=== PATIENT | male | born 1955 | race Hispanic/Latino ===

== ENCOUNTER 2016-07-21 14:24 | Outpatient (CLI) | payer MEDICARE ==
[2016-07-21 15:10] LABS: Hemoglobin A1c 8.3 % (4.0-6.0)
[2016-07-21 15:41] LABS: ALT (SGPT) 11 U/L (0-55); AST (SGOT) 8 U/L (5-34); Albumin 4.1 g/dL (3.4-4.8); Alkaline Phosphatase 83 U/L (40-150); Anion Gap 14 mmol/L (10-20); BUN (Urea Nitrogen) 20 mg/dL (8.4-25.7); Bilirubin, Total 0.5 mg/dL (0.2-1.2); Calc. Creatinine Clearance 0 mL/min (70-130); Carbon Dioxide 23 mmol/L (23-31); Chloride 101 mmol/L (98-107); Estimated GFR-MDRD 54; Globulin 2.7 g/dL (2.4-3.5); Glucose 295 mg/dL (80-115); Protein, Total 6.8 g/dL (5.8-8.1); Sodium 134 mmol/L (136-145)
== END 2016-07-21 14:25 | disposition home or self-care (01) ==
LOC: MADLABBHPM 14:24
PROVIDERS: ATTEND Family Medicine
DX: E11.65 Type 2 diabetes mellitus with hyperglycemia (principal)
CPT/HCPCS: 36415; 80053; 83036

== ENCOUNTER 2016-07-25 11:14 | Outpatient (CLI) | payer MEDICARE ==
[2016-07-25 17:50] LABS: Microalbumin-Urine 3.4 mg/dL; Microalbumin/24 Hr 9.52 mg/24 hr (Less than 30)
== END 2016-07-25 11:15 | disposition home or self-care (01) ==
LOC: MADLABBHPM 11:14
PROVIDERS: ATTEND Family Medicine
DX: R80.9 Proteinuria, unspecified (principal)
CPT/HCPCS: 36415; 82043

== ENCOUNTER 2016-10-22 09:53 | Outpatient (CLI) | payer MEDICARE ==
[2016-10-22 11:04] LABS: ALT (SGPT) 15 U/L (8-55); AST (SGOT) 11 U/L (5-34); Albumin 3.9 g/dL (3.4-4.8); Alkaline Phosphatase 67 U/L (40-150); Anion Gap 12 mmol/L (10-20); BUN (Urea Nitrogen) 19 mg/dL (8.4-25.7); Bilirubin, Total 0.3 mg/dL (0.2-1.2); Calc. Creatinine Clearance 0 mL/min (70-130); Calcium 9.1 mg/dL (7.8-10.44); Carbon Dioxide 23 mmol/L (23-31); Cardiac Risk 4.6 (Less than 4.5); Chloride 106 mmol/L (98-107); Cholesterol 139 mg/dl (< 200 Desired); Estimated GFR-MDRD 54; Globulin 2.9 g/dL (2.4-3.5); Glucose 193 mg/dL (80-115); HDL Cholesterol 30 mg/dL (>60 Neg Risk); LDL Cholesterol, Calculated 70 mg/dL; Potassium 3.8 mmol/L (3.5-5.1); Protein, Total 6.8 g/dL (5.8-8.1); Sodium 137 mmol/L (136-145); Triglycerides 197 mg/dL (Less than 150)
[2016-10-22 11:07] LABS: Hemoglobin A1c 7.3 % (4.0-6.0)
== END 2016-10-22 09:54 ==
LOC: MADLABBHPM 09:53
PROVIDERS: ATTEND Family Medicine
DX: E11.65 Type 2 diabetes mellitus with hyperglycemia (principal)
CPT/HCPCS: 80053; 80061; 83036; 84443

== ENCOUNTER 2017-01-01 18:19 | Emergency (ER) | payer MEDICARE ==
[~2017-01-01 18:19] MED LIST: Sodium Chloride 0.9% 1,000 ML BAG ONE
[2017-01-01 19:05] LABS: #Basophils 0.1 thou/uL (0.0-0.2); #Eosinphils 0.1 thou/uL (0.0-0.7); #Lymphocytes 2.7 thou/uL (1.20-3.40); #Monocytes 0.5 thou/uL (0.11-0.59); #Neutrophils 11.3 thou/uL (1.40-6.50); %Basophils 0.4 % (0.0-1.0); %Eosinophils 0.7 % (0.0-10.0); %Lymphocytes 18.4 % (21.0-51.0); %Monocytes 3.6 % (0.0-10.0); Hemoglobin 15.1 g/dL (14.0-18.0); Mean Corpuscular HGB CONC 32.9 g/dL (32.0-36.0); Mean Corpuscular Hemoglobin 28.1 pg (27.0-31.0); Mean Corpuscular Volume 85.5 fl (80.0-94.0); Mean Platelet Volume 9.8 fL (7.4-10.4); Platelet Count 205 thou/uL (130-400); RBC Distribution Width 13.6 % (11.5-14.5); Red Blood Cell (RBC) Count 5.37 mill/uL (4.70-6.10); White Blood Cell (WBC) Count 14.7 thou/uL (4.8-10.8)
[2017-01-01 19:10] LABS: Prothrombin Time 13.4 SEC (12.0-14.7)
[2017-01-01 19:21] LABS: ALT (SGPT) 12 U/L (8-55); AST (SGOT) 13 U/L (5-34); Albumin 4.1 g/dL (3.4-4.8); Alkaline Phosphatase 64 U/L (40-150); Anion Gap 16 mmol/L (10-20); BUN (Urea Nitrogen) 15 mg/dL (8.4-25.7); Bilirubin, Total 0.4 mg/dL (0.2-1.2); Calc. Creatinine Clearance 0 mL/min (70-130); Calcium 9.5 mg/dL (7.8-10.44); Carbon Dioxide 23 mmol/L (23-31); Chloride 104 mmol/L (98-107); Estimated GFR-MDRD 62; Globulin 3.1 g/dL (2.4-3.5); Glucose 135 mg/dL (80-115); Lipase 30 U/L (8-78); Potassium 3.8 mmol/L (3.5-5.1); Protein, Total 7.2 g/dL (5.8-8.1); Sodium 139 mmol/L (136-145)
[2017-01-01] MEDS ORDERED: Meclizine HCl 25 MG TAB ONE (19:22)
[2017-01-01] MEDS ORDERED: Ondansetron HCl/PF 4 MG/2 ML Vial ONE (19:24)
[2017-01-01] MEDS ORDERED: Ketorolac Tromethamine 30 MG/ML VIAL ONE (19:24)
--- NOTE | 2017-01-01 22:51 | CT ---
NONCONTRAST CT OF THE BRAIN 01/01/17 INDICATION: Headache. COMPARISON: Prior exam dated 12/14/11. IMPRESSION: No acute intracranial abnormality. COMMENTS: There is mild generalized cerebral atrophy. Septum pellucidum and third ventricle are midline. No ac grand traverse infarct, hemorrhage or hydrocephalus present. There are vascular calcifications involving the in tracranial arteries. Mastoid air cells and paranasal sinuses are clear. Skull is intact. POS: [facility]
--- NOTE | 2017-01-01 22:56 | CT ---
NONCONTRAST CT OF THE CERVICAL SPINE INDICATIONS: Radiculopathy. COMPARISON: None. FINDINGS: No acute fracture or subluxation is evident. There is mild right osseous neural foraminal narrowing at C3-C4, due to uncovertebral hypertrophy an d facet joint degenerative change. No additional definite level of osseous neural foraminal narrowing is noted. There is mild multilev el disk degenerative changes. There is diffuse osteopenia. The lung apices are clear. The craniocervical junction appears within normal limits. IMPRESSION: 1. No acute osseous abnormality. 2. Mild spondylosis of the cervical spine. POS: [facility]
--- NOTE | 2017-01-01 22:59 | RAD ---
AP VIEW OF THE CHEST 01/01/17 INDICATION: Dizziness and abdominal pain. IMPRESSION: No acute cardiopulmonary abnormality. COMMENTS: The exam is not appreciably changed from a comparison dated 08/31/14. POS: [facility]
== END 2017-01-01 21:35 | disposition home or self-care (01) ==
LOC: MADERS 18:19
DX: H83.09 Labyrinthitis, unspecified ear (principal); E11.9 Type 2 diabetes mellitus without complications; I10 Essential (primary) hypertension; E03.9 Hypothyroidism, unspecified; F17.210 Nicotine dependence, cigarettes, uncomplicated; Z79.4 Long term (current) use of insulin; Z79.82 Long term (current) use of aspirin; Z79.899 Other long term (current) drug therapy; Z79.891 Long term (current) use of opiate analgesic
CPT/HCPCS: 36416; 70450; 71010; 72125; 80053; 82150; 83690; 83880; 85025; 85610; 85730; 93005; 96361; 96374; 96375; J1885; J2405; J7050

== ENCOUNTER 2017-01-21 08:29 | Outpatient (CLI) | payer MEDICARE ==
[2017-01-21 10:02] LABS: ALT (SGPT) 12 U/L (8-55); AST (SGOT) 11 U/L (5-34); Albumin 4.1 g/dL (3.4-4.8); Alkaline Phosphatase 65 U/L (40-150); Anion Gap 14 mmol/L (10-20); BUN (Urea Nitrogen) 30 mg/dL (8.4-25.7); Bilirubin, Total 0.4 mg/dL (0.2-1.2); Calc. Creatinine Clearance 0 mL/min (70-130); Calcium 9.3 mg/dL (7.8-10.44); Carbon Dioxide 22 mmol/L (23-31); Chloride 104 mmol/L (98-107); Estimated GFR-MDRD 47; Globulin 3.1 g/dL (2.4-3.5); Glucose 152 mg/dL (80-115); Protein, Total 7.2 g/dL (5.8-8.1); Sodium 136 mmol/L (136-145)
== END 2017-01-21 08:30 | disposition home or self-care (01) ==
LOC: MADLABBHPM 08:29
PROVIDERS: ATTEND Family Medicine
DX: E11.65 Type 2 diabetes mellitus with hyperglycemia (principal)
CPT/HCPCS: 36415; 80053; 83036

== ENCOUNTER 2017-11-23 07:50 | Outpatient (CLI) | payer MEDICARE ==
[2017-11-23 09:00] LABS: ALT (SGPT) 16 U/L (8-55); AST (SGOT) 17 U/L (5-34); Alkaline Phosphatase 52 U/L (40-150); Anion Gap 15 mmol/L (10-20); BUN (Urea Nitrogen) 23 mg/dL (8.4-25.7); Bilirubin, Total 0.5 mg/dL (0.2-1.2); Calc. Creatinine Clearance 0 mL/min (70-130); Calcium 8.9 mg/dL (7.8-10.44); Carbon Dioxide 23 mmol/L (23-31); Chloride 107 mmol/L (98-107); Cholesterol 132 mg/dl (< 200 Desired); Estimated GFR-MDRD 54; Globulin 2.6 g/dL (2.4-3.5); Glucose 150 mg/dL (80-115); HDL Cholesterol 33 mg/dL (>60 Neg Risk); LDL Cholesterol, Calculated 73 mg/dL; Potassium 3.7 mmol/L (3.5-5.1); Protein, Total 6.6 g/dL (5.8-8.1); Sodium 141 mmol/L (136-145); Triglycerides 132 mg/dL (Less than 150)
== END 2017-11-23 07:51 | disposition home or self-care (01) ==
LOC: MADLABBHPM 07:50
PROVIDERS: ATTEND Family Medicine
DX: E78.2 Mixed hyperlipidemia (principal)
CPT/HCPCS: 36415; 80053; 80061

== ENCOUNTER 2018-02-26 11:10 | Outpatient (CLI) | payer MEDICARE ==
[2018-02-28 18:07] LABS: Anion Gap 14 mmol/L (10-20); BUN (Urea Nitrogen) 24 mg/dL (8.4-25.7); Calc. Creatinine Clearance 0 mL/min (70-130); Carbon Dioxide 23 mmol/L (23-31); Chloride 106 mmol/L (98-107); Estimated GFR-MDRD 59; Glucose 277 mg/dL (80-115); Potassium 3.7 mmol/L (3.5-5.1); Sodium 139 mmol/L (136-145)
[2018-02-28 18:08] LABS: ALT (SGPT) 21 U/L (8-55); AST (SGOT) 30 U/L (5-34); Albumin 3.9 g/dL (3.4-4.8); Alkaline Phosphatase 97 U/L (40-150); Bilirubin, Total 0.5 mg/dL (0.2-1.2); Calcium 9.1 mg/dL (7.8-10.44); Globulin 2.9 g/dL (2.4-3.5); Protein, Total 6.8 g/dL (5.8-8.1)
[2018-02-28 18:31] LABS: Hemoglobin A1c 8.2 % (4.0-6.0)
== END 2018-02-26 11:11 | disposition home or self-care (01) ==
LOC: MADLAB 11:10
PROVIDERS: ATTEND Family Medicine
DX: E11.65 Type 2 diabetes mellitus with hyperglycemia (principal)
CPT/HCPCS: 36415; 80053; 83036; 84443

== ENCOUNTER 2019-11-17 13:51 | Emergency (ER) | payer MEDICARE ==
--- NOTE | 2019-11-17 14:42 | CT ---
CT BRAIN WITHOUT CONTRAST: HISTORY: Left-sided numbness Comparison 01/01/2017 FINDINGS: Mild generalized cerebral atrophy is stable. 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 No evidence of acute infarct, hemorrhage, midline shift or abnormal extra-axial fluid collections is seen. The ventricular size is appropriate and the basilar cisterns are patent. The bony calvarium is intact. The visualized paranasal sinuses and mastoid air cells are well aerated. IMPRESSION: No CT evidence of acute intracranial process.
[2019-11-17] MEDS ORDERED: Aspirin 325 MG TAB ONE (15:49)
== END 2019-11-17 16:00 | disposition home or self-care (01) ==
LOC: MADERS 13:51
DX: R20.0 Anesthesia of skin (principal); E11.9 Type 2 diabetes mellitus without complications; I10 Essential (primary) hypertension; E03.9 Hypothyroidism, unspecified; Z79.4 Long term (current) use of insulin; Z79.899 Other long term (current) drug therapy; F17.210 Nicotine dependence, cigarettes, uncomplicated
CPT/HCPCS: 36416; 70450

== ENCOUNTER 2020-08-01 11:15 | Outpatient (CLI) | payer MEDICARE ==
[2020-08-01 11:32] LABS: Bilirubin Small (Negative); Blood, Urine Negative (Negative); Clarity Clear (Clear); Glucose, Urine (Dipstick) Negative (Negative); Ketone, Urine 15 mg/dL (Negative); Leukocyte Negative (Negative); Nitrite Negative (Negative); Protein, Urine (Dipstick) 30 mg/dL (Neg-Trace); Specific Gravity, Urine 1.025 (1.005-1.030); Urobilinogen 0.2 mg/dL (Less than 2)
[2020-08-01 11:39] LABS: RBC/HPF 0-3 HPF (0-3); WBC/HPF 0-3 HPF (0-3)
[2020-08-01 11:40] LABS: Bacteria/HPF Rare-Few HPF (None Seen)
== END 2020-08-01 11:16 | disposition home or self-care (01) ==
LOC: MADLAB 11:15
PROVIDERS: ATTEND Family Medicine
DX: D72.829 Elevated white blood cell count, unspecified (principal)
CPT/HCPCS: 81001; 87086

== ENCOUNTER 2021-01-02 11:51 | Emergency (ER) | payer MEDICARE ==
[2021-01-02 12:49] LABS: #Lymphocytes 1.9 thou/uL (1.20-3.40); #Monocytes 0.3 thou/uL (0.11-0.59); #Neutrophils 9.1 thou/uL (1.40-6.50); %Basophils 0.4 % (0.0-1.0); %Eosinophils 0.2 % (0.0-10.0); %Lymphocytes 16.7 % (21.0-51.0); %Monocytes 2.4 % (0.0-10.0); %Neutrophils 80.3 % (42.0-75.0); Hemoglobin 15.4 g/dL (14.0-18.0); Mean Corpuscular HGB CONC 32.1 g/dL (32.0-36.0); Mean Corpuscular Hemoglobin 28.3 pg (27.0-31.0); Mean Corpuscular Volume 88.3 fL (78.0-98.0); Mean Platelet Volume 9.3 fL (7.4-10.4); Platelet Count 213 thou/uL (130-400); RBC Distribution Width 14.6 % (11.5-14.5); Red Blood Cell (RBC) Count 5.43 mill/uL (4.70-6.10); White Blood Cell (WBC) Count 11.4 thou/uL (4.8-10.8)
[2021-01-02 13:08] LABS: ALT (SGPT) 13 U/L (8-55); AST (SGOT) 16 U/L (5-34); Albumin 4.1 g/dL (3.4-4.8); Alkaline Phosphatase 64 U/L (40-110); Anion Gap 17 mmol/L (10-20); BUN (Urea Nitrogen) 33 mg/dL (8.4-25.7); Bilirubin, Total 0.4 mg/dL (0.2-1.2); Calc. Creatinine Clearance 0 mL/min (70-130); Calcium 9.5 mg/dL (7.8-10.44); Carbon Dioxide 22 mmol/L (23-31); Chloride 105 mmol/L (98-107); Globulin 2.8 g/dL (2.4-3.5); Glucose 101 mg/dL (80-115); Lipase 34 U/L (8-78); Protein, Total 6.9 g/dL (5.8-8.1); Sodium 140 mmol/L (136-145)
[2021-01-02 14:00] LABS: Bilirubin Negative (Negative); Blood, Urine Negative (Negative); Clarity Clear (Clear); Glucose, Urine (Dipstick) Negative (Negative); Ketone, Urine Trace mg/dL (Negative); Leukocyte Negative (Negative); Nitrite Negative (Negative); Protein, Urine (Dipstick) 30 mg/dL (Neg-Trace); Specific Gravity, Urine 1.025 (1.005-1.030); Urobilinogen 0.2 mg/dL (Less than 2); pH, Urine 5.5 (5.0-9.0)
[2021-01-02 14:03] LABS: Bacteria/HPF Rare-Few HPF (None Seen); RBC/HPF 0-3 HPF (0-3); Squamous Epithelial 0-3 HPF (0-3); WBC/HPF 0-3 HPF (0-3)
== END 2021-01-02 14:50 | disposition home or self-care (01) ==
LOC: MADERS 11:51
DX: R11.2 Nausea with vomiting, unspecified (principal); I10 Essential (primary) hypertension; E78.5 Hyperlipidemia, unspecified; E78.00 Pure hypercholesterolemia, unspecified; I20.9 Angina pectoris, unspecified; E03.9 Hypothyroidism, unspecified; E11.9 Type 2 diabetes mellitus without complications; F17.210 Nicotine dependence, cigarettes, uncomplicated; Z79.4 Long term (current) use of insulin; Z79.899 Other long term (current) drug therapy
CPT/HCPCS: 80053; 81003; 81015; 83605; 83690; 84484; 85025; 93005

== ENCOUNTER 2021-04-03 12:04 | Outpatient (CLI) | payer MEDICARE | END 2021-04-03 12:05 | disposition home or self-care (01) | LOC: MADRAD 12:04 | PROVIDERS: ATTEND Family Medicine | DX: M25.512 Pain in left shoulder (principal); M89.9 Disorder of bone, unspecified ==

== ENCOUNTER 2021-04-09 15:44 | Outpatient (CLI) | payer MEDICARE | END 2021-04-09 15:45 | disposition home or self-care (01) | LOC: MADCT 15:44 | PROVIDERS: ATTEND Family Medicine | DX: S49.92XS Unspecified injury of left shoulder and upper arm, sequela (principal); M25.512 Pain in left shoulder; R93.89 Abnormal findings on diagnostic imaging of other specified body structures; M19.012 Primary osteoarthritis, left shoulder ==

== ENCOUNTER 2022-04-23 15:40 | Outpatient (CLI) | payer MEDICARE | END 2022-04-23 15:41 | disposition home or self-care (01) | LOC: MADLAB 15:40 | PROVIDERS: ATTEND Internal Medicine | DX: J45.40 Moderate persistent asthma, uncomplicated (principal); J01.90 Acute sinusitis, unspecified | CPT/HCPCS: 70220; 71046 ==

== ENCOUNTER 2022-12-24 15:10 | Emergency (ER) | payer MEDICARE ==
[2022-12-24 17:09] LABS: Bilirubin Large (Negative); Blood, Urine Large (Negative); Glucose, Urine (Dipstick) 250 mg/dL (Negative); Ketone, Urine 15 mg/dL (Negative); Leukocyte Small (Negative); Nitrite Positive (Negative); Protein, Urine (Dipstick) > or equal to 300 mg/dL (Neg-Trace); Urobilinogen > or = 8.0 mg/dL (Less than 2)
[2022-12-24 17:13] LABS: Clarity Cloudy (Clear); Specific Gravity, Urine 1.026 (1.002-1.036)
[2022-12-24 17:17] LABS: Bacteria/HPF 2+ HPF (None Seen); CAUTI Indications for Culture Dysuria,urgency,freq; Mucous/LPF 1+ LPF (<2+); RBC/HPF Greater than 50 HPF (0-3); Squamous Epithelial 0-3 HPF (0-3); WBC/HPF Greater Than 50 HPF (0-3)
[2022-12-24 17:18] LABS: Urine Culture Reflex Yes Yes
[2022-12-24] MEDS ORDERED: Ciprofloxacin 500 MG TAB ONE (18:04)
== END 2022-12-24 18:10 | disposition home or self-care (01) ==
LOC: MADERS 15:10
DX: N39.0 Urinary tract infection, site not specified (principal); I10 Essential (primary) hypertension; E11.9 Type 2 diabetes mellitus without complications; E78.00 Pure hypercholesterolemia, unspecified; E03.9 Hypothyroidism, unspecified; F17.210 Nicotine dependence, cigarettes, uncomplicated; Z79.4 Long term (current) use of insulin; Z79.899 Other long term (current) drug therapy
CPT/HCPCS: 81001; 87077; 87086; 87186; 99283